=== PATIENT | male | born 1960 | race African-American/Black ===

== ENCOUNTER 2017-03-23 18:47 | Inpatient (IN) ==
[2017-03-23 21:22] LABS: MANUAL DIFF NEEDED? NO
[2017-03-23 21:28] LABS: BASO% 1.2 % (0.0-0.8); EOS# 0.18 X1000 (0.0-0.7); EOS% 1.9 % (0.0-10.0); HEMATOCRIT 22.5 % (42.0-52.0); HEMOGLOBIN 7.3 g/dL (14.0-18.0); IMM GRAN# 0.01 X1000 (0.0-0.04); IMM GRAN% 0.1 % (0.0-0.5); LYMPH# 2.08 X1000 (1.2-3.4); LYMPH% 21.8 % (20.5-51.1); MCH 28.5 PG (27-31); MCHC 32.4 g/dL (33-37); MCV 87.9 FL (81-99); MONO# 0.68 X1000 (0.11-0.59); MONO% 7.1 % (1.7-9.3); MPV 7.9 FL (7.4-10.4); NEUT% 67.9 % (42.2-75.2); PLT 617 X1000 (130-400); RBC 2.56 XMIL (4.7-6.1)
[2017-03-23 21:42] LABS: AGAP 15; ALBUMIN 3.2 g/dL (3.5-5.0); ALKALINE PHOSPHATASE 111 U/L (32-122); AMYLASE 99 U/L (20-200); BUN 30 mg/dL (8-22); CALCIUM 8.1 mg/dL (8.8-10.2); CHLORIDE 104 mmol/L (98-107); COSMO 281; GOT 26 U/L (10-34); GPT 28 U/L (10-44); LIPASE 32 U/L (13-60); POTASSIUM 5.5 mmol/L (3.5-5.1); SODIUM 138 mmol/L (136-145); TCO2 19 mmol/L (25-35); TOTAL BILIRUBIN < 0.15 mg/dL (0.20-1.00); TOTAL PROTEIN 7.8 g/dL (6.3-8.3)
[2017-03-23] MEDS ORDERED: NS 1,000 ML IV ONE (21:47)
[2017-03-23] MEDS ORDERED: XYLOCAINE 2% JELLY UROJECT ONE (21:48)
[2017-03-23] MEDS ORDERED: DILAUDID IV ONE (22:12)
[2017-03-23 22:49] LABS: BILIRUBIN URINE NEGATIVE (NEGATIVE); BLOOD URINE 3+ (NEGATIVE); CLARITY CLEAR (CLEAR); COLOR STRAW; GLUCOSE URINE NEGATIVE (NEGATIVE); LEUKOCYTES URINE 2+ (NEGATIVE); NITRITE URINE NEGATIVE (NEGATIVE); PROTEIN URINE TRACE mg/dL (NEGATIVE); UROBILINOGEN URINE NORMAL
[2017-03-23 23:10] LABS: URINE EPITHELIAL CELLS <10 /HPF (<10); URINE RBC <10 /HPF (<10)
[2017-03-23 23:11] LABS: URINE CULTURE PL NEEDED? YES; URINE SOURCE CATH
[2017-03-24 00:02] LABS: RETIC% 0.93 % (0.8-2.1); RETIC-HE 28.6 PG (28.2-36.6)
--- NOTE | 2017-03-24 00:18 | EKG Report ---
Test Performed on : 03/23/2017 11:56:30 PM Test Reason : hyperkalemia Blood Pressure : / mmHG Vent. Rate : 075 BPM Atrial Rate : 075 BPM P-R Int : 176 ms QRS Dur : 084 ms QT Int : 382 ms P-R-T Axes : 076 066 081 degrees QTc Int : 426 ms Sinus rhythm. with premature supraventricular complexes. Septal infarct , age undetermined Abnormal ECG No previous ECGs available Unconfirmed Result
[2017-03-24 00:38] LABS: IRON SATURATION 10 %; TIBC 254 ug/dL; TOTAL IRON 25 ug/dL (53-167); UNBOUND IRON 229 ug/dL (112-346)
[2017-03-24] MEDS ORDERED: MORPHINE IV ONE (02:29)
[2017-03-24] MEDS: NORCO-10 PO PRN ×3 (03:02→15:44)
[2017-03-24] MEDS ORDERED: DILAUDID IV ONE (03:43)
[2017-03-24] MEDS ORDERED: ZOFRAN IV PRN (03:57)
[2017-03-24] MEDS ORDERED: TYLENOL PO PRN (03:57)
[2017-03-24] MEDS ORDERED: APRESOLINE IV PRN (03:57)
[2017-03-24] MEDS ORDERED: FLOMAX PO ONE (04:03)
[2017-03-24] MEDS ORDERED: NS 500 ML ONE (04:18)
[2017-03-24] MEDS: PROTONIX IV SCH (04:46)
[2017-03-24] MEDS: SODIUM CHLORIDE 0.9% INJ SCH (04:46)
[2017-03-24 04:53] LABS: UR CREAT RANDOM 31.6 mg/dL (14-26)
[2017-03-24] MEDS: NS 1,000 ML IV SCH ×3 (06:37→18:54)
--- NOTE | 2017-03-24 06:41 | HISTORY AND PHYSICAL ---
DATE AND TIME: 03/24/2017 at 0330 hours. PRIMARY CARE PROVIDER: The patient does not have a primary care provider. CHIEF COMPLAINT: Urinary retention and lower abdominal pain. HISTORY OF PRESENT ILLNESS: Mr. Landin is a 56-year-old, male who presented to the ER at [facility] at approximately 1845 hours yesterday. He reports that he has been having low back pain as well as low abdominal pain for the past 2 days. He reports that starting 2 days ago on March 22, he began having difficulty urinating. His symptoms progressively worsened to yesterday, he became unable to urinate at all. Upon arrival to the ER at [facility], a Dickson catheter was placed and they have now gotten a total of 3000 mL of urine out since his Dickson catheter placement. Laboratory results revealed that the patient also had an acute kidney injury as well as he is anemic also with a hemoglobin of 7.3 and a hematocrit of 22.5. CT abdomen and pelvis was performed which showed mild bilateral hydronephrosis with ill- defined perinephric fat stranding of uncertain etiology. Also, the urinary bladder is mildly thick walled with a Dickson catheter appropriately positioned. This is per Radiology. The patient does report previous problems with this for which he was most recently admitted to 2 different hospitals in [place] for treatment of difficulty urinating. He reports that he was admitted to [facility], [place] in [place], [place] for 10 days and then was subsequently admitted to [facility], [place], operated by [facility] in [place], [place] for 7 days and was just recently discharged last . The patient denies any previous history of problems with anemia. He denies any hematochezia or melena. He also denies any hematuria other than when they placed his Dickson catheter. The patient does report that he had some recent problems controlling his blood pressure and stated that during his previous admissions that his blood pressure did read above 200 systolic on a few occasions. At this time, the patient will be admitted for further treatment evaluation of his acute kidney injury as well as obstructive uropathy. REVIEW OF SYSTEMS: A 12-point review of systems was conducted with the patient and all were negative except for pertinent positives mentioned in the HPI. PAST MEDICAL HISTORY: 1. Hypertension. 2. Reported blood clot on his kidney per the patient. SURGICAL HISTORY: Reported surgery for treatment of a blood clot on his kidney per the patient. SOCIAL HISTORY: The patient reports that he smokes 1/3 pack of cigarettes per day. He denies any daily alcohol use but reports that he will occasionally drink a beer. He denies any illicit drug use. The patient reports that he just recently moved here from [place]. FAMILY HISTORY: Positive for history of kidney disease in his mother who did have to receive dialysis and did receive a kidney transplant as well. She also had a history of coronary artery disease. His father had a history of kidney disease also. He reports that his siblings are healthy. ALLERGIES: Patient reports allergies to fish. HOME MEDICATIONS: 1. Norvasc 5 mg p.o. daily. 2. Bactrim DS 1 tablet p.o. b.i.d. 3. Vitamin D 5000 units p.o. daily. 4. [place] 10 mg 1 p.o. q.6 hours p.r.n. for pain. DIAGNOSTIC DATA/LABORATORY RESULTS: White blood cell count 9.54, hemoglobin 7.3 , hematocrit 22.5, platelet count 617,000. Percent reticulocyte count is 0.93. Sodium 138, potassium 5.5, chloride 104, bicarbonate 19, BUN 30, creatinine 3.9. The estimated GFR of 16, glucose 86, calcium 8.1. Liver function tests within normal limits. Amylase 99, lipase 32. PSA was 1.30. Urinalysis was obtained via catheter and was positive for trace protein, 3+ blood, 2+ white blood cells, 10-20 microscopic white blood cells and 1+ bacteria. It was negative for ketones and nitrites. EKG shows sinus rhythm with premature supraventricular complexes at a rate of 75 , QTc is 426. A CT of the abdomen and pelvis without contrast showed mild bilateral hydronephrosis with ill- defined aviva-nephric fat stranding of uncertain etiology. Urinary bladder was mildly thick walled with a Dickson catheter appropriately positioned. Also, noted was at least 3 small liver hypodensities measuring over 9 mm in the left liver, which are indeterminate. This is per Radiology. PHYSICAL EXAMINATION: VITAL SIGNS: Temperature 98.1 degrees, heart rate 81, respirations 16. Previous blood pressures were 184/95, though repeat blood pressure at this time is 146/97, oxygen saturations 97% on room air. GENERAL: Mr. Landin is a pleasant 56-year-old, male, who is resting in the inpatient bed. He was in no acute distress. He was awake, alert and able to answer all questions appropriately. HEENT: Head is atraumatic, normocephalic. Pupils are equal, round, reactive to light, 3 mm bilaterally and brisk. Subconjunctivae were slightly pale. Oropharynx was clear. Oral mucosa was slightly dry. NECK: Supple. Trachea midline. No carotid bruits noted upon auscultation bilaterally. CARDIOVASCULAR: Patient has normal S1, S2. No murmurs, gallops, rubs appreciated with a regular rate and rhythm. PULMONARY: Patient has symmetrical chest expansion bilaterally. Lung sounds were clear to auscultation in bilateral full mack. ABDOMEN: Soft, nondistended. Bowel sounds were present in all 4 quadrants. The patient did have some tenderness noted upon palpation of the suprapubic area and lower abdomen, though no rebound tenderness noted. He also did have some slight CVA tenderness noted upon palpation bilaterally as well as some low back pain noted upon palpation as well. GENITOURINARY: Patient does have a Dickson catheter in place at this time. He does have méndez yellow urine noted to the Dickson drainage bag. RECTAL: Exam was performed by Dr. Quick, which showed findings of no stool in the vault, also stool was grossly nonbloody. This has been sent off for Hemoccult stool per lab , which was negative for blood as well. EXTREMITIES: No cyanosis, clubbing, or edema noted. Pulse, motor and sensory were intact in all extremities. Pedal and radial pulses are 3+ bilaterally. INTEGUMENTARY: Patient's skin color is normal for his race, is dry and intact. No lesions or sores noted. NEUROLOGICAL: Patient is alert, oriented to person, place, time, situation. Cranial nerves 2-12 are grossly intact. ASSESSMENT AND PLAN: 1. Acute kidney injury. This is likely secondary to the patient's obstructive uropathy. We will treat the patient with fluid resuscitation of normal saline at 125 mL/h. He did previously receive a normal saline 1000 mL bolus in the ER at [facility] as well. We will continue to follow this closely and avoid nephrotoxic medications, as well as renally dose medications as necessary. 2. Obstructive uropathy. For further evaluation of this, we have consulted Dr. Valverde with Urology and we will await his evaluation and further recommendations. The patient does have a Dickson catheter in place at this time and we are monitoring his urine output closely. We will also place him on Flomax 0.4 mg p.o. daily. 3. Symptomatic anemia. At this time, we have ordered for the patient to receive 1 unit of packed red blood cells. We have ordered an anemia profile and will await those results and continue to follow. We will also repeat a CBC later on this afternoon at approximately at 12 p.m. 4. Uncontrolled hypertension. We have placed p.r.n. orders for hydralazine 10 mg IV q.6 hours p.r.n. for systolic blood pressure greater than 200 or diastolic greater than 100. We will continue to monitor this closely. At this time, the patient's blood pressure has improved with the last reading of 146/97. 5. Tobacco abuse. We will continue to on awake counselor the patient on smoking cessation during his admission and upon discharge. I did offer the patient a nicotine patch, though he declined this at this time. 6. The patient was placed on a medical floor with telemetry. He will have vital signs q.8 hours. We will do strict intake and output. He will have sequential compression devices placed for deep vein thrombosis prophylaxis. Gastrointestinal prophylaxis provided with Protonix 40 mg IV q.24 hours. He will be on a renal diet. Further orders and recommendations pending hospital course, diagnostic studies and physician evaluation. Dictated by SUKHI Andersen for Neri Quick MD cc: Neri Quick MD pt examined, possibly pt has underlying renal disease, now obstructive uropathy , will hydrate and follow [facility]
[2017-03-24] MEDS: DILAUDID IV PRN ×5 (07:43→23:13)
--- NOTE | 2017-03-24 07:44 | Diag Imaging Result Doc PS360 ---
EXAM: ABDOMEN/PELVIS W/O CONTRAST HISTORY: abd pain TECHNIQUE: Renal stone search COMMENT: There are no previous studies. There are calcified granulomata in the spleen. There is no evidence of nephrolithiasis. There is some fullness in the left collecting system. There is one granuloma in the liver. There are also at least two cysts in the liver. There are no apparent gallstones. There is dilatation of the infrarenal abdominal aorta which is also partially calcified. This demonstrates a maximum AP dimension of over 3.6 cm. There is also extensive calcification in the iliac arteries. There appears to be some dilatation of the proximal common iliac arteries. No evidence of bowel obstruction is present. There is no definite adenopathy. There is a Dickson catheter in the bladder. The urinary bladder appears somewhat thickened and there is not undistended, the possibility of cystitis is suspected. There are severe degenerative disc changes at L4-5. There is no evidence of acute bony disease. The appendix is not distended. IMPRESSION: Possibility of cystitis cannot BE excluded. Mild left hydronephrosis of uncertain etiology. No evidence of urolithiasis. Electronically signed by Dino Liu 03/24/2017 7:42 AM
[2017-03-24] MEDS: VITAMIN D PO SCH (08:53)
[2017-03-24] MEDS: FLOMAX PO SCH (08:53)
[2017-03-24] MEDS ORDERED: VITAMIN D PO SCH (09:00)
[2017-03-24 10:21] LABS: HEMOGLOBIN 8.9 g/dL (14.0-18.0); MCH 28.5 PG (27-31); MCV 86.5 FL (81-99); MPV 8.8 FL (7.4-10.4); RBC 3.12 XMIL (4.7-6.1); RETIC% 1.06 % (0.8-2.1); RETIC-HE 30.5 PG (28.2-36.6)
[2017-03-24 10:36] LABS: ALBUMIN 3.4 g/dL (3.5-5.0); CALCIUM 8.4 mg/dL (8.8-10.2); POTASSIUM 4.8 mmol/L (3.5-5.1)
[2017-03-24 12:26] LABS: HEMATOCRIT 26.6 % (42.0-52.0); HEMOGLOBIN 8.6 g/dL (14.0-18.0); MCH 28.3 PG (27-31); MCHC 32.3 g/dL (33-37); MCV 87.5 FL (81-99); MPV 8.4 FL (7.4-10.4); RBC 3.04 XMIL (4.7-6.1)
[2017-03-24 12:46] LABS: CALCIUM 8.3 mg/dL (8.8-10.2)
--- NOTE | 2017-03-24 14:37 | Diag Imaging Result Doc PS360 ---
EXAM: US RENAL 2 (RETROPER) COMPLETE HISTORY: dilan TECHNIQUE: COMMENT: The kidneys are hyperechoic. The right kidney is 10.3 x 6 x 4.4 cm the left is 11.2 x 6.1 x 7 cm. There is a Dickson catheter in the bladder which is not distended. There is minimal prominence of the calyceal system and the left kidney. The resistive index is only 0.59 however, and this is probably physiologic. Otherwise there is no evidence of mass or hydronephrosis. IMPRESSION: Medical renal disease. Electronically signed by Dino Liu 03/24/2017 2:35 PM
--- NOTE | 2017-03-24 15:13 | PROGRESS NOTE ---
DATE: 03/24/2017 SUBJECTIVE: The patient is resting comfortably in bed. He has no complaints at this time. OBJECTIVE: Vital Signs: Temperature 97.7 degrees, blood pressure 125/84, heart rate 59, respirations 16, O2 saturation 100% on room air. General: This is an elderly male, lying in bed in no acute distress. HEENT: Head normocephalic, atraumatic. Heart: S1 and S2 normal. Regular rate and rhythm. Lungs: Clear to auscultation bilaterally. Abdomen: Positive bowel sounds. Soft, nontender, nondistended. Extremities: No edema. No cyanosis. No calf tenderness. Neurologic: The patient is alert and oriented x3. LABORATORIES: White blood cell count 8.7, hemoglobin 9.9, hematocrit 27, platelets 600,000. Sodium 140, potassium 4.8, chloride 106, CO2 of 19, BUN 22, creatinine 3.2, glucose 114. ASSESSMENT AND PLAN: 1. Acute kidney injury. The patient is responding to IV fluid hydration. His renal ultrasound was unremarkable. We will check urine studies and monitor the patient's urine output closely. 2. Benign prostatic hypertrophy. The patient is on Flomax and has a Dickson catheter in place. 3. Mild left hydronephrosis. Urology has been consulted for further recommendations. We will await their recommendations. 4. Hypertension. Controlled. 5. Gastrointestinal prophylaxis. Continue on IV Protonix. 6. Deep vein thrombosis prophylaxis. Continue with SCDs. cc: Delores Fisher MD
[2017-03-24 15:40] LABS: UR CREAT RANDOM 76.7 mg/dL (14-26); UR PROT RANDOM 95.6 mg/dL
[2017-03-24 16:37] LABS: FERRITIN 242 ng/mL (30-400)
--- NOTE | 2017-03-24 17:48 | CONSULTATION ---
DATE OF CONSULTATION: 03/24/2017 ATTENDING AND REFERRING PHYSICIAN: Hospitalist. HISTORY OF PRESENT ILLNESS: This 56-year-old male was admitted 2 days ago with lower back and abdominal pain, renal failure and urinary retention. The patient states he started having discomfort several days ago and had a very hard time voiding. He states the urine would almost just leak out. He was seen in the [place] emergency room where a Dickson catheter was placed and over 3 L of urine returned. A CT scan obtained at that time did not reveal any renal lithiasis but it did show a 3.8 cm abdominal aortic aneurysm with dilation down into the common iliac artery and significant calcification of the internal and external iliac arteries. The patient states he is taking medication for blood pressure but has problems controlling it. He states he was hospitalized several weeks ago in [facility] and states that he had a cystoscopic exam and some kind of laser surgery. He states it was in his bladder. He has had no other urologic surgery. He denies any hematuria. He states he has never had urinary retention previously. He states his mother on dialysis after a renal transplant. There is no family history of prostate cancer. He states he continues with lower back and abdominal pain requiring narcotics. PAST MEDICAL HISTORY: Hypertension, question of blood clots in his kidney. HOME MEDICATIONS: Included amlodipine, [place], Septra DS. PAST SURGICAL HISTORY: Cystoscopic exam with some type of bladder surgery. He denies any other type of surgery. SOCIAL HISTORY: Cigarettes . A 3rd to half pack a day for 25 years. ETOH use social. ALLERGIES: He has no known drug allergies. REVIEW OF SYSTEMS: He states usually he feels pretty well. He denies any problems with heart disease, diabetes, strokes, or seizures. PHYSICAL EXAMINATION: General: A thin, age apparent, normally developed black male, oriented in all ways and cooperative. HEENT: Normal for age. Lungs: Clear. Cardiovascular: Regular rate and rhythm. Abdomen: Flat, soft, nontender. No hepatosplenomegaly or masses. : Uncircumcised male with Dickson catheter in place. Foreskin retracts easily. No lesions or discharges. Both testes are down and palpably normal. No inguinal hernias. Rectal: Normal sphincter tone. Prostate about 30-40 g, smooth and symmetric. Extremities: No C, C or E. Neuro: No focal deficits. LABORATORY EVALUATION: Has a serum sodium of 139, potassium 5, chloride 106, bicarb 21, BUN 21, creatinine 3.3. It was 3.9 two days ago when he had his Dickson catheter placed. CBC has a white count 8.54, hemoglobin 8.6, hematocrit 26.6 and platelets are 579,000. CT scan did not reveal any renal lithiasis. There was minimal left hydronephrosis. Right side was normal. Parenchyma was thin on both kidneys. The bladder art were somewhat thickened. Dickson catheter in place. Abdominal aortic aneurysm to about 3.8 cm with extensive calcifications of the iliac systems bilaterally. Renal ultrasound 2 days later did not reveal any hydronephrosis but renal parenchyma was hyperechoic and somewhat thin consistent with medical renal disease. IMPRESSION: 1. History of urinary retention. Probable neurogenic bladder. 2. Renal insufficiency certainly contributed to by obstructive uropathy but mostly due to severe peripheral vascular disease and medical renal disease. 3. Anemia secondary to renal parenchymal disease. 4. Renal function that will probably not improve much with Dickson drainage. RECOMMEND: Continue Flomax. No dosage adjustment is needed since it is metabolized by the liver. Will follow. He should keep the Dickson catheter for at least 7 days to ensure the bladder regains as much tone as possible. Thank you for this consultation. cc: Sid Valverde MD
[2017-03-24] MEDS: COLACE PO SCH (20:14)
[2017-03-25] MEDS: NS 1,000 ML IV SCH ×2 (02:59→16:55)
[2017-03-25] MEDS: NORCO-10 PO PRN ×3 (02:59→16:21)
[2017-03-25] MEDS: PROTONIX IV SCH (06:22)
[2017-03-25 06:42] LABS: HEMATOCRIT 26.3 % (42.0-52.0); HEMOGLOBIN 8.5 g/dL (14.0-18.0); MCH 28.5 PG (27-31); MCHC 32.3 g/dL (33-37); MCV 88.3 FL (81-99); MPV 8.9 FL (7.4-10.4); RBC 2.98 XMIL (4.7-6.1)
[2017-03-25 06:44] LABS: ALBUMIN 2.9 g/dL (3.5-5.0); CALCIUM 8.3 mg/dL (8.8-10.2); POTASSIUM 5.7 mmol/L (3.5-5.1)
[2017-03-25] MEDS ORDERED: D50W SYRINGE IV ONE (08:25)
[2017-03-25] MEDS ORDERED: SODIUM BICARBONATE 8.4% IV ONE (08:25)
[2017-03-25] MEDS ORDERED: HUMULIN R IV ONE (08:25)
[2017-03-25] MEDS ORDERED: ALBUTEROL 0.5% INH CONC FOR HYPERKALEMIA INH ONE (08:26)
[2017-03-25] MEDS ORDERED: ALBUTEROL 0.5% INH CONC FOR HYPERKALEMIA ONE (08:53)
[2017-03-25] MEDS: FLOMAX PO SCH (09:07)
[2017-03-25] MEDS: COLACE PO SCH ×2 (09:07→20:29)
[2017-03-25] MEDS: MIRALAX PO SCH (09:07)
[2017-03-25] MEDS: VITAMIN D PO SCH (09:08)
[2017-03-25] MEDS: FOLIC ACID PO SCH (09:08)
[2017-03-25 12:37] LABS: HEMOGLOBIN A1C 5.3 % (4.8-6.0)
[2017-03-25] MEDS ORDERED: VITAMIN D PO SCH (13:00)
--- NOTE | 2017-03-25 14:59 | PROGRESS NOTE ---
DATE: 03/25/2017 SUBJECTIVE: The patient has no complaints. He states that he has been having bowel movements and eating all of his meals. No acute events noted overnight. OBJECTIVE: Vital Signs: Temperature 97.8 degrees, blood pressure 132/74, heart rate 76, respirations 16, O2 saturations 100% on room air. General: This is an elderly male, lying in bed, in no acute distress. Head: Normocephalic, atraumatic. Heart: S1, S2. Normal. Regular rate and rhythm. Lungs: Clear to auscultation bilaterally. Abdomen: Positive bowel sounds. Soft, nontender, nondistended. Extremities: No edema. No cyanosis. Neurologic: The patient is alert and oriented x3. LABS: White blood cell count 7.7, hemoglobin 8.5, hematocrit 26, platelets 536,000. Sodium 140, potassium 5.7, chloride 110, CO2 19, BUN 22, creatinine 2.8, glucose 71. Phosphorus 4.9. ASSESSMENT AND PLAN: 1. Acute kidney injury. Slowly improving. Continue on IV fluids. 2. Urinary retention. We will leave the Dickson in place as directed by the urologist. The patient will follow up as outpatient. Continue on Flomax. 3. Anemia. This appears to be iron deficiency. Will start the patient on iron supplementation. Will also check stool for occult blood. 4. Folate deficiency. We will start the patient on folic acid replacement. 5. Hypertension. Controlled. 6. Disposition. The patient should be stable for discharge home tomorrow provided his renal function continues to improve. cc: Delores Fisher MD
[2017-03-25] MEDS: DILAUDID IV PRN (20:29)
[2017-03-26] MEDS: NORCO-10 PO PRN (01:32)
[2017-03-26 05:36] VITALS: BP 118/71
[2017-03-26] MEDS: DILAUDID IV PRN (05:50)
[2017-03-26] MEDS: SODIUM CHLORIDE 0.9% INJ SCH (05:50)
[2017-03-26] MEDS: PROTONIX IV SCH (05:50)
[2017-03-26] MEDS: NS 1,000 ML IV SCH (05:55)
[2017-03-26 06:31] LABS: HEMATOCRIT 24.9 % (42.0-52.0); MCH 28.3 PG (27-31); MCHC 32.1 g/dL (33-37); RBC 2.83 XMIL (4.7-6.1)
[2017-03-26 07:11] LABS: ALBUMIN 2.8 g/dL (3.5-5.0); CALCIUM 8.5 mg/dL (8.8-10.2); POTASSIUM 5.2 mmol/L (3.5-5.1)
[2017-03-26] MEDS ORDERED: ICAR-C PO SCH (09:00)
[2017-03-26] MEDS: MIRALAX PO SCH (09:17)
[2017-03-26] MEDS: COLACE PO SCH (09:17)
[2017-03-26] MEDS: FOLIC ACID PO SCH (09:17)
[2017-03-26] MEDS: FLOMAX PO SCH (09:17)
--- NOTE | 2017-04-01 16:31 | DISCHARGE SUMMARY ---
ADMISSION DATE: 03/24/2017 DISCHARGE DATE: 03/26/2017 FINAL DISCHARGE DIAGNOSES: 1. Acute kidney injury secondary to obstructive uropathy secondary to urinary retention. 2. Hyperkalemia. 3. Urinary retention. 4. Hypertension. 5. Folate deficiency. CONSULTATIONS REQUESTED DURING THIS HOSPITAL STAY: Urology consultation with Dr. Valverde. HOSPITAL COURSE: Mr. Landin is a 56-year-old male with a history of hypertension and chronic kidney disease, who presented to the ER with a chief complaint of lower abdominal pain. On admission, the patient had a CT of the abdomen and pelvis done which revealed will mild left hydronephrosis and possible cystitis. The patient was admitted to the hospitalist service. On admission the patient was noted to have a creatinine of 3.9. A Dickson catheter was placed and the patient had instant relief from the urinary retention. A renal ultrasound was done that revealed medical renal disease. With the initiation of IV fluids the patient's creatinine improved from 3.9 to 2.6 over the course of the hospitalization. It was recommended by the urologist that the patient keep the Dickson catheter in for 7 days and follow up as outpatient for further treatment options. The patient continued to improve clinically and was cleared for discharge home on March 26, 2017. DISCHARGE MEDICATIONS: 1. Vitamin D2 28375 units oral every 7 days. 2. Folic acid 1 tablet oral daily. 3. Icar C 1 tablet oral daily. 4. Flomax 0.4 mg p.o. daily. 5. [place] 10/325 one tablet oral every 6 hours p.r.n. for pain. 6. Norvasc 10 mg p.o. daily. DISCHARGE DIET: Low-sodium diet. ACTIVITY: As tolerated. FOLLOWUP INSTRUCTIONS: The patient will need to follow up with Dr. Valverde in 4 days. cc: Delores Fisher MD
--- NOTE | 2017-04-08 05:26 | PROVIDER DOCUMENTATION ---
This chart was entered by Nuria Celeste Scribe, acting as scribe for Ronn Sinha DO. HPI-Abdominal Pain/GI Problem - General Chief Complaint: Abdominal Pain Stated Complaint: MALE Time Seen by Provider: 03/23/17 20:55 Source: patient Allergies/Adverse Reactions: Patient Allergies Allergy/AdvReac Type Severity Reaction Status Date / Time No Known Allergies Allergy Verified 03/23/17 19:07 Home Medications: Home Medication List Medication Instructions Recorded Confirmed Last Taken Type Hydrocodone/APAP 10 mg/325 mg 1 tab PO Q6H PRN 03/23/17 03/23/17 03/23/17 14:30 History [[place]-10] Amlodipine [Norvasc] 1 tab PO DAILY #30 tablet 03/26/17 Unknown Rx Ergocalciferol (Vitamin D2) 50,000 unit PO Q7D #8 capsule 03/26/17 Unknown Rx [Vitamin D] Folic Acid 1 mg PO DAILY #30 tablet 03/26/17 Unknown Rx Iron Carbonyl/Ascorbic Acid 1 each PO DAILY #30 tablet 03/26/17 Unknown Rx [Icar-C] Tamsulosin [Flomax] 0.4 mg PO DAILY #30 capsule 03/26/17 Unknown Rx - History of Present Illness-ABD Nature of Presenting Problems: 56 Y/O M presents to ED with ABD pain. pt states he was in [place], [place] last week and was discharged after surgery with a blood clot in kidney. Pt states a mckinnon was placed in due to the difficulty of him urinating States continued difficulty stating dysuria when urinating. Pt sates that he has been having lower ABD pain with radiation to lower back. Abdominal Pain Onset Location: reports: suprapubic Pain Radiation: reports: back Quality of Pain: reports: aching Severity in ED: reports: moderate Onset/Duration: reports: last week Timing: reports: still present Associated Symptoms: reports: back/neck pain, genitourinary problems. denies: cough, dizziness Review of Systems - Adult - REVIEW OF SYSTEMS - ADULT Constitutional: denies: chills, fever Eyes: reports: no symptoms reported Ears, Nose, Mouth & Throat: reports: no symptoms reported Cardiovascular: denies: chest pain Respiratory: denies: cough Gastrointestinal: reports: no symptoms reported Genitourinary: reports: dysuria, urinary retention Musculoskeletal: reports: no symptoms reported Integumentary: reports: no symptoms reported Neurological: reports: no symptoms reported Psychiatric: reports: no symptoms reported Endocrine: reports: no symptoms reported Hematologic/Lymphatic: reports: no symptoms reported Allergic/Immunologic: reports: no symptoms reported All Other Systems: Reviewed and Negative Past History - Adult - PAST MEDICAL HISTORY-ADULT Review of Records: reports: Old Records Reviewed, Nursing Assessment Review, Medications Reviewed, Social history reviewed & non-contributory. Physical Exam-General - PHYSICAL EXAM-ADULT Initial Vital Signs Reviewed: Yes - CONSTITUTIONAL General Appearance: appears well, alert, no apparent distress - EYES Eyes: PERRL/EOMI, pink conjunctivae - HEAD, EARS, NOSE, MOUTH & THROAT HENMT: normocephalic/atraumatic, moist mucous membranes, normal ENT inspection, TMs normal, pharynx normal - NECK Neck: non-tender, full range of motion, supple, normal inspection - RESPIRATORY Respiratory: chest non-tender, lungs clear, normal breath sounds - CARDIOVASCULAR Cardiovascular: normal peripheral pulses, regular rate, rhythm - GASTROINTESTINAL (ABDOMEN) Abdominal Exam: tenderness - LYMPHATIC Lymphatic: no adenopathy - MUSCULOSKELETAL Back Exam: normal inspection Extremity: normal range of motion - SKIN Integumentary: normal color, normal turgor, warm/dry - NEUROLOGIC Neurologic: log chipper II-XII nml as tested - PSYCHIATRIC Psych/Mental Status: normal mood/affect, normal thought content, normal thought process, oriented x 3 Progress - PLAN OF CARE/RESULTS Progress/Plan/Lab Results: Vital Signs - 8 hr 03/23/17 19:01 Temperature 98.9 F Pulse Rate 65 Respiratory Rate 20 Blood Pressure 129/87 O2 Sat by Pulse Oximetry 100 Orders Category Date Time Status Saline Loc DIRECTED Care 03/23/17 20:58 Active NPO Diet 03/23/17 20:58 Active AMYLASE [CHEM] Stat Lab 03/23/17 20:58 Ordered CBC WITH ELECTRONIC DIFF [HEME] Stat Lab 03/23/17 20:58 Ordered COMPREHENSIVE METABOLIC PANEL [CHEM] Stat Lab 03/23/17 20:58 Ordered LIPASE [CHEM] Stat Lab 03/23/17 20:[address] W/POSS RFLX CULT [URINALYSIS] Stat Lab 03/23/17 20:58 Uncollected ua [URINALYSIS PL W/POSS RFLX CULT] [URINALYSIS] Stat Lab 03/23/17 20:52 Uncollected Result Diagrams: 03/26/17 05:30 03/26/17 05:30 - EKG 1 Time of EKG reading by physician:: 23:56 EKG Read and Signed by:: Ronn Sinha EKG Interpretation (*Must complete 3 of following elements*): Abnormal Rate: 75 Rhythm: Sinus Rhythm with premature supraventricular conplexes Comments: Septal infract, Abnormal ECG - CT/MRI 1 CT Study: Abdomen, Pelvis Impression: Abnormal (mild bilateral hydronephrowis with ill defined perinephric fat stranding of uncertain etiology. Urinary bladder is mildly thich -walled with a mckinnon catheter appropriately positioned) CT Results: See Notes - CONSULTS/PCP/HOSPITALIST Notification #1 *Consult/PCP/Hospitalist*: Time Discussed: 23:43 Reason/Comments: Admit Xfer to [facility] Disposition: Admit (Admit Accepted) Departure - Departure Time of Disposition Decision: 23:46 DIAGNOSIS: Renal failure, Weakness, Urinary retention, Dehydration Disposition: ADMITTED INPATIENT 09 Certified Medical Emergency: Emergent Condition: Stable - Critical Care Note This patient required my direct & personal management of CC.: No This chart was documented by the indicated scribe, (Nuria Celeste Scribe) and accurately reflects the services I performed and decisions made by me, Ronn Sinha DO, as attested by the provider's signature.
== END 2017-03-26 12:03 | disposition home or self-care (01) ==
LOC: P.ED 18:47 → SUATTDRO 03-24 01:34 → 4N 03-24 01:34
PROVIDERS: ATTEND Internal Medicine